=== PATIENT | male | born 1945 | race Caucasian/White ===

== ENCOUNTER 2017-11-28 19:25 | Emergency (ER) | payer OTHER ==
[~2017-11-28] VITALS: Ht 177.8 cm; Wt 90.7 kg
[2017-11-28] MEDS ORDERED: AVAPRO300 MG PO (20:50)
[2017-11-28] MEDS ORDERED: HYDROCODONE-AP1 EAC6 PO (22:13)
== END 2017-11-28 22:27 | disposition home or self-care (01) ==
LOC: ER 19:25
DX: S30.0XXA Contusion of lower back and pelvis, initial encounter (principal); S09.8XXA Other specified injuries of head, initial encounter; I10 Essential (primary) hypertension; W00.1XXA Fall from stairs and steps due to ice and snow, initial encounter; Y93.89 Activity, other specified; Y92.89 Other specified places as the place of occurrence of the external cause; Y99.8 Other external cause status